=== PATIENT | female | born 1995 | race Caucasian/White ===

== ENCOUNTER 2017-12-06 06:45 | Inpatient (IN) | payer OTHER ==
[~2017-12-06] VITALS: Ht 167.6 cm; Wt 110.7 kg
[~2017-12-06 06:45] MED LIST: BEN50 PO; FERR-212 PO; PREN1SGL44 PO
[2017-12-06] MEDS ORDERED: CITRIC ACID/SODIUM CITRATE 30 ML UDC PO SCH (08:30)
--- NOTE | 2017-12-06 08:42 | NUR ---
PATIENT HAS BEEN SCREENED AND CATEGORIZED LOW NUTRITION RISK. PATIENT WILL BE SEEN WITHIN 7 DAYS OF ADMISSION. 12/12/[address]
[2017-12-06] MEDS: LACTATED RINGERS 1,000 ML IV SCH ×2 (09:15→10:11)
[2017-12-06 09:25] LABS: BASOPHILS % (AUTO) 0.5 % (0.0-2.0); EOSINOPHILS % (AUTO) 0.5 % (0.0-4.0); HEMATOCRIT 36.6 % (36-48); HEMOGLOBIN 11.9 g/dL (12.0-16.0); LYMPHOCYTES # (AUTO) 1.5 K/uL (2.5-16.5); LYMPHOCYTES % (AUTO) 15.5 % (20.5-51.1); MEAN CORPUSCULAR HEMOGLOBIN 28 pg (27-31); MEAN CORPUSCULAR HGB CONC 33 g/dL (33-37); MEAN CORPUSCULAR VOLUME 86.8 fL (80-94); MONOCYTES # (AUTO) 0.8 K/uL (0.8-1.0); MONOCYTES % (AUTO) 7.6 % (1.7-9.3); NEUTROPHILS # (AUTO) 7.6 K/uL (1.8-7.7); NEUTROPHILS % (AUTO) 75.9 % (42.2-75.2); PLATELET COUNT (AUTO) 189 K/uL (140-450); RED BLOOD CELL COUNT(AUTO) 4.22 MIL/uL (4.20-5.40); RED CELL DISTRIBUTION WIDTH 13.6 % (11.6-13.7); WHITE BLOOD COUNT (AUTO) 9.9 K/uL (4.8-10.8)
[2017-12-06 09:47] LABS: ALBUMIN 2.3 g/dL (3.4-5.0); ANION GAP 10.9 (8-16); CARBON DIOXIDE 25.2 mmol/L (21-32); CREATININE 0.6 mg/dL (0.6-1.3); POTASSIUM 4.1 mmol/L (3.5-5.1); TOTAL BILIRUBIN 0.2 mg/dL (0.0-1.0)
[2017-12-06 09:47] LABS: APPEARANCE,URINE CLEAR (CLEAR); BILIRUBIN,URINE NEGATIVE (NEGATIVE); BLOOD, URINE NEGATIVE (NEGATIVE); COLOR,URINE YELLOW (YELLOW); LEUKOCYTE ESTERASE ,URINE NEGATIVE (NEGATIVE); NITRITE, URINE NEGATIVE (NEGATIVE); PH,URINE 6.5 (5.0-9.0); UGLUCOSE NEGATIVE (NEGATIVE)
[2017-12-06] MEDS ORDERED: PREN-546 PO (11:01)
[2017-12-06] MEDS ORDERED: CITRIC ACID/SODIUM CITRATE 30 ML UDC ONE (12:45)
[2017-12-06] MEDS ORDERED: OXYTOCIN 10 UNITS/ML VIAL ONE (13:08)
[2017-12-06] MEDS ORDERED: MORPHINE PRES FREE 2 MG/2 ML 2 mL UD SYRINGE ONE (13:09)
[2017-12-06] MEDS ORDERED: BUPIVACAINE/DEXT 0.75% SPINAL 2 ML AMP INJ ONE (13:10)
[2017-12-06] MEDS ORDERED: BUPIVACAINE-MPF 0.75% 10 ML VIAL INJ ONE (13:10)
[2017-12-06] MEDS ORDERED: ONDANSETRON 4 MG/2 ML VIAL ONE (13:10)
[2017-12-06] MEDS ORDERED: ceFAZolin 1,000 MG VIAL ONE (13:10)
[2017-12-06] MEDS ORDERED: OXYTOCIN 20 UNITS in LACTATED RINGERS 1,000 ML IV SCH (13:27)
[2017-12-06] MEDS ORDERED: diphenhydrAMINE 50 MG/ML VIAL IVP PRN (13:30)
[2017-12-06] MEDS ORDERED: ONDANSETRON 4 MG/2 ML VIAL IVP PRN (13:30)
[2017-12-06] MEDS ORDERED: NALOXONE 0.4 MG/ML VIAL IVP PRN ×2 (13:30)
[2017-12-06] MEDS ORDERED: KETOROLAC 30 MG/ML VIAL IVP PRN (13:30)
[2017-12-06] MEDS ORDERED: OXYTOCIN 20 UNITS/LR PREMIX 1,000 ML IV ONE (14:51)
[2017-12-06] MEDS ORDERED: METHYLERGONOVINE 0.2 MG/ML AMP IM PRN (16:05)
[2017-12-06] MEDS ORDERED: SIMETHICONE 80 MG TAB.CHEW PO PRN (16:05)
[2017-12-06] MEDS ORDERED: oxyCODONE/APAP 5/325 MG 1 TAB TAB PO PRN (16:05)
[2017-12-06] MEDS ORDERED: IBUPROFEN 800 MG TAB PO PRN (16:05)
[2017-12-06] MEDS ORDERED: TEMAZEPAM 15 MG CAP PO PRN (16:05)
[2017-12-06] MEDS: KETOROLAC 30 MG/ML VIAL IVP PRN (18:27)
[2017-12-06] MEDS: SENNA 8.6 MG TAB PO SCH (21:24)
[2017-12-07] MEDS ORDERED: OXYTOCIN 20 UNITS/LR PREMIX 1,000 ML IV ONE (00:06)
[2017-12-07] MEDS: OXYTOCIN 20 UNITS in LACTATED RINGERS 1,000 ML IV SCH ×2 (00:41→07:47)
[2017-12-07 06:32] LABS: BASOPHILS % (AUTO) 0.2 % (0.0-2.0); EOSINOPHILS % (AUTO) 0.5 % (0.0-4.0); HEMATOCRIT 31.8 % (36-48); HEMOGLOBIN 10.5 g/dL (12.0-16.0); LYMPHOCYTES # (AUTO) 1.3 K/uL (2.5-16.5); LYMPHOCYTES % (AUTO) 14.7 % (20.5-51.1); MEAN CORPUSCULAR HEMOGLOBIN 29 pg (27-31); MEAN CORPUSCULAR HGB CONC 33 g/dL (33-37); MEAN CORPUSCULAR VOLUME 86.3 fL (80-94); MONOCYTES # (AUTO) 0.6 K/uL (0.8-1.0); MONOCYTES % (AUTO) 6.4 % (1.7-9.3); NEUTROPHILS # (AUTO) 6.8 K/uL (1.8-7.7); NEUTROPHILS % (AUTO) 78.2 % (42.2-75.2); PLATELET COUNT (AUTO) 146 K/uL (140-450); RED BLOOD CELL COUNT(AUTO) 3.69 MIL/uL (4.20-5.40); RED CELL DISTRIBUTION WIDTH 13.6 % (11.6-13.7); WHITE BLOOD COUNT (AUTO) 8.7 K/uL (4.8-10.8)
[2017-12-07] MEDS ORDERED: OXYTOCIN 10 UNITS/ML VIAL ONE (07:44)
[2017-12-07] MEDS: KETOROLAC 30 MG/ML VIAL IVP PRN (07:47)
[2017-12-07] MEDS ORDERED: oxyCODONE/APAP 5/325 MG 1 TAB TAB PO PRN (12:00)
[2017-12-07] MEDS: HYDROcodone/APAP 5/325 MG 1 TAB TAB PO PRN (12:53)
[2017-12-07] MEDS: SENNA 8.6 MG TAB PO SCH (20:53)
[2017-12-08] MEDS: HYDROcodone/APAP 5/325 MG 1 TAB TAB PO PRN ×3 (00:45→21:59)
[2017-12-08] MEDS: SENNA 8.6 MG TAB PO SCH (21:02)
[2017-12-09] MEDS ORDERED: IBUP-1842 PO (09:07)
== END 2017-12-09 15:00 | disposition home or self-care (01) | DRG 540 ==
LOC: MLD 06:45 → MFCC 13:10
PROVIDERS: ADMIT Obstetrics & Gynecology; ATTEND Obstetrics & Gynecology
PROC: 10D00Z1 Extraction of Products of Conception, Low, Open Approach (ICD-10-PCS; principal; 2017-12-08)
DX: O34.211 Maternal care for low transverse scar from previous cesarean delivery (principal); E66.9 Obesity, unspecified; O99.214 Obesity complicating childbirth; Z37.0 Single live birth; Z3A.38 38 weeks gestation of pregnancy; Z28.21 Immunization not carried out because of patient refusal; Z68.39 Body mass index [BMI] 39.0-39.9, adult
CPT/HCPCS: 36415; 80053; 81003; 85025; 86592; 86886; 86900; 86901; J0690; J1885; J2270; J2405; J2590; J3490; J7060; J7120